=== PATIENT | female | born 1945 | race Caucasian/White ===

== ENCOUNTER → 2023-07-28 12:41 | Outpatient (REF) | payer MEDICARE, SELFPAY ==
[2023-07-28 13:25] LABS: % Basophils 0.8 % (0-2); % Eosinophils 2.6 % (0-6); % Immature Granulocytes 0.6 % (0-0.5); % Monocytes 6.9 % (1.7-9.3); % Neutrophils 66.1 % (42.2-75.2); Absolute Basophils 0.1 10^3/uL (0-0.2); Absolute Eosinophils 0.5 10^3/uL (0-0.7); Absolute Immature Granulocytes 0.1 10^3/uL (0-0.05); Absolute Lymphocytes 4.1 10^3/uL (1.2-3.4); Absolute Monocytes 1.2 10^3/uL (0.1-0.6); Absolute Neutrophils 11.6 10^3/uL (1.4-6.5); Hematocrit 36.4 % (37.0-47.0); Mean Corpuscular Hgb 29.1 pg (27.0-31.0); Mean Corpuscular Volume 88.1 fL (81.0-99.0); Mean Platelet Volume 9.1 fL (7.4-10.4); Nucleated Red Blood Cells % 0 %; Platelet Count 815 10^3/uL (130-400); Red Blood Cell Count 4.13 10^6/uL (4.20-5.40); Red Cell Dist. Width 15.1 % (11.5-14.5); White Blood Cell Count 17.6 10^3/uL (4.8-10.8)
== END ==
LOC: REG 12:41
PROVIDERS: ATTENDING PHYSICIAN Internal Medicine
DX: I48.0 Paroxysmal atrial fibrillation (principal); I10 Essential (primary) hypertension; D75.839 Thrombocytosis, unspecified; E83.52 Hypercalcemia
CPT/HCPCS: 36415; 85025

== ENCOUNTER → 2023-12-28 09:44 | Outpatient (REF) | payer MEDICARE, SELFPAY ==
[2023-12-28 10:35] LABS: % Eosinophils 3.1 % (0-6); % Immature Granulocytes 0.7 % (0-0.5); % Lymphocytes 21.9 % (20.5-51.1); % Monocytes 9.6 % (1.7-9.3); % Neutrophils 63.7 % (42.2-75.2); Absolute Basophils 0.2 10^3/uL (0-0.2); Absolute Eosinophils 0.5 10^3/uL (0-0.7); Absolute Immature Granulocytes 0.1 10^3/uL (0-0.05); Absolute Lymphocytes 3.4 10^3/uL (1.2-3.4); Absolute Monocytes 1.5 10^3/uL (0.1-0.6); Absolute Neutrophils 9.9 10^3/uL (1.4-6.5); Hematocrit 25.9 % (37.0-47.0); Hemoglobin 7.9 g/dL (12.0-16.0); Mean Corp Hgb Conc. 30.5 g/dL (33.0-37.0); Mean Corpuscular Hgb 20.4 pg (27.0-31.0); Mean Corpuscular Volume 66.9 fL (81.0-99.0); Mean Platelet Volume 8.6 fL (7.4-10.4); Nucleated Red Blood Cells % 0 %; Platelet Count 906 10^3/uL (130-400); Red Blood Cell Count 3.87 10^6/uL (4.20-5.40); Red Cell Dist. Width 18.2 % (11.5-14.5); White Blood Cell Count 15.5 10^3/uL (4.8-10.8)
[2023-12-28 11:02] LABS: Iron < 20 ug/dl (37-170)
[2023-12-28 11:12] LABS: Total Iron Binding Capacity 380 ug/dl (265-497)
== END ==
LOC: REG 09:44
PROVIDERS: ATTENDING PHYSICIAN Internal Medicine
DX: D47.3 Essential (hemorrhagic) thrombocythemia (principal)
CPT/HCPCS: 36415; 83540; 83550; 85025

== ENCOUNTER 2024-01-12 10:40 | Outpatient (RCR) | payer MEDICARE, SELFPAY ==
[2024-01-05 11:45] VITALS: BP 137/91
[2024-01-05] MEDS: INJECTAFER 265 MG IV (11:54)
[2024-01-05 12:40] VITALS: BP 135/57
[2024-01-12] MEDS: INJECTAFER 265 MG IV (10:54)
[2024-01-12 11:26] VITALS: BP 156/48
== END 2024-01-18 23:59 | disposition home or self-care (01) ==
LOC: OID 10:40
PROVIDERS: ATTENDING PHYSICIAN Internal Medicine
DX: D50.8 Other iron deficiency anemias (principal); D50.0 Iron deficiency anemia secondary to blood loss (chronic); Q27.33 Arteriovenous malformation of digestive system vessel
CPT/HCPCS: 96365; J1439

== ENCOUNTER → 2024-01-22 10:44 | Outpatient (REF) | payer MEDICARE, SELFPAY ==
[2024-01-22 13:13] LABS: % Basophils 0.8 % (0-2); % Eosinophils 1.8 % (0-6); % Immature Granulocytes 0.5 % (0-0.5); % Lymphocytes 20.6 % (20.5-51.1); % Monocytes 7.5 % (1.7-9.3); % Neutrophils 68.8 % (42.2-75.2); Absolute Basophils 0.1 10^3/uL (0-0.2); Absolute Eosinophils 0.3 10^3/uL (0-0.7); Absolute Immature Granulocytes 0.1 10^3/uL (0-0.05); Absolute Lymphocytes 3.4 10^3/uL (1.2-3.4); Absolute Monocytes 1.3 10^3/uL (0.1-0.6); Absolute Neutrophils 11.5 10^3/uL (1.4-6.5); Hematocrit 34.6 % (37.0-47.0); Hemoglobin 10.7 g/dL (12.0-16.0); Mean Corp Hgb Conc. 30.9 g/dL (33.0-37.0); Mean Corpuscular Hgb 24.7 pg (27.0-31.0); Mean Corpuscular Volume 79.7 fL (81.0-99.0); Mean Platelet Volume 9.2 fL (7.4-10.4); Nucleated Red Blood Cells % 0 %; Platelet Count 738 10^3/uL (130-400); Red Blood Cell Count 4.34 10^6/uL (4.20-5.40); Reticulocyte Count 2.7 % (0.4-2.8); White Blood Cell Count 16.7 10^3/uL (4.8-10.8)
[2024-01-22 13:21] LABS: Anisocytosis 1+; Normal RBC Morphology No; Ovalocytes Slight; Target Cells Slight
== END ==
LOC: REG 10:44
PROVIDERS: ATTENDING PHYSICIAN Internal Medicine
DX: D50.8 Other iron deficiency anemias (principal); D75.838 Other thrombocytosis; I48.0 Paroxysmal atrial fibrillation
CPT/HCPCS: 36415; 85025; 85045

== ENCOUNTER → 2024-05-02 10:33 | Outpatient (REF) | payer MEDICARE, SELFPAY ==
[2024-05-02 11:55] LABS: % Basophils 0.8 % (0-2); % Eosinophils 3.3 % (0-6); % Immature Granulocytes 0.8 % (0-0.5); % Lymphocytes 21.6 % (20.5-51.1); % Monocytes 8.9 % (1.7-9.3); % Neutrophils 64.6 % (42.2-75.2); Absolute Basophils 0.1 10^3/uL (0-0.2); Absolute Eosinophils 0.5 10^3/uL (0-0.7); Absolute Immature Granulocytes 0.1 10^3/uL (0-0.05); Absolute Lymphocytes 3.4 10^3/uL (1.2-3.4); Absolute Monocytes 1.4 10^3/uL (0.1-0.6); Absolute Neutrophils 10.1 10^3/uL (1.4-6.5); Hematocrit 38.8 % (37.0-47.0); Hemoglobin 12.9 g/dL (12.0-16.0); Mean Corp Hgb Conc. 33.2 g/dL (33.0-37.0); Mean Corpuscular Hgb 29.9 pg (27.0-31.0); Nucleated Red Blood Cells % 0 %; Platelet Count 671 10^3/uL (130-400); Red Blood Cell Count 4.31 10^6/uL (4.20-5.40); White Blood Cell Count 15.6 10^3/uL (4.8-10.8)
== END ==
LOC: REG 10:33
PROVIDERS: ATTENDING PHYSICIAN Internal Medicine; FAMILY PHYSICIAN Internal Medicine
DX: D50.0 Iron deficiency anemia secondary to blood loss (chronic) (principal)
CPT/HCPCS: 36415; 85025; 85045

== ENCOUNTER → 2024-08-05 07:37 | Outpatient (REF) | payer MEDICARE, SELFPAY ==
[2024-08-05 09:00] LABS: % Eosinophils 3.5 % (0-6); % Immature Granulocytes 0.5 % (0-0.5); % Lymphocytes 22.1 % (20.5-51.1); % Monocytes 7.6 % (1.7-9.3); % Neutrophils 65.3 % (42.2-75.2); Absolute Basophils 0.1 10^3/uL (0-0.2); Absolute Eosinophils 0.4 10^3/uL (0-0.7); Absolute Immature Granulocytes 0.1 10^3/uL (0-0.05); Absolute Lymphocytes 2.8 10^3/uL (1.2-3.4); Absolute Neutrophils 8.2 10^3/uL (1.4-6.5); Hematocrit 38.8 % (37.0-47.0); Hemoglobin 12.6 g/dL (12.0-16.0); Mean Corp Hgb Conc. 32.5 g/dL (33.0-37.0); Mean Corpuscular Hgb 29.4 pg (27.0-31.0); Mean Corpuscular Volume 90.4 fL (81.0-99.0); Mean Platelet Volume 9.3 fL (7.4-10.4); Nucleated Red Blood Cells % 0 %; Platelet Count 709 10^3/uL (130-400); Red Blood Cell Count 4.29 10^6/uL (4.20-5.40); White Blood Cell Count 12.6 10^3/uL (4.8-10.8)
[2024-08-05 09:41] LABS: ALT (SGPT) < 10 U/L (0-35); AST (SGOT) 15 U/L (14-36); Albumin 3.9 g/dl (3.5-5.0); Alkaline Phosphatase 97 U/L (38-126); Blood Urea Nitrogen 8 mg/dl (7-17); Calcium 9.8 mg/dl (8.4-10.2); Carbon Dioxide 28 mmol/L (22-30); Chloride 100 mmol/L (98-107); Glucose 86 mg/dl (70-99); HDL Cholesterol 72 mg/dl; Iron 72 ug/dl (37-170); LDL Cholesterol, Calculated 136 mg/dl; Potassium 4.3 mmol/L (3.5-5.1); Sodium 137 mmol/L (135-145); Total Bilirubin 0.5 mg/dl (0.2-1.3); Total Cholesterol 231 mg/dl (50-199); Total Protein 6.3 g/dl (6.3-8.2); Triglyceride 116 mg/dl (10-149); Very Low Density Lipoprotein 23 mg/dl (0-30); eGFR > 60.00
[2024-08-05 09:50] LABS: Percent Saturation 27 % (20-50); Total Iron Binding Capacity 260 ug/dl (265-497)
== END ==
LOC: REG 07:37
PROVIDERS: ATTENDING PHYSICIAN Internal Medicine
DX: D75.839 Thrombocytosis, unspecified (principal); Z86.2 Personal history of diseases of the blood and blood-forming organs and certain disorders involving the immune mechanism; I10 Essential (primary) hypertension; E78.5 Hyperlipidemia, unspecified; R14.3 Flatulence; Z00.00 Encounter for general adult medical examination without abnormal findings
CPT/HCPCS: 36415; 80053; 80061; 83540; 83550; 85025